=== PATIENT | male | born 1980 | race Caucasian/White ===

== ENCOUNTER 2024-08-31 09:49 | Emergency (ER) | payer OTHER, SELFPAY ==
--- NOTE | ~2024-08-31 | XR_ITS ---
EXAMINATION: XR chest 2V DATE: 08/31/2024 10:21 INDICATION: Cough TECHNIQUE: PA and lateral views of the chest were obtained. COMPARISON: None FINDINGS: Emphysema with increased lucency and architectural distortion in the upper lung zones. Moderate biapi terrell pleural-parenchymal scarring with associated linear discoid atelectasis on the left. 9 mm right l ower lobe nodule which given conspicuity is likely calcified sequela of old granulomatous disease. No other airspace opacities, pulmonary edema, pleural effusion or pneumothorax. Heart size is normal. V isualized bones and soft tissues are unremarkable. IMPRESSION: 1. Emphysema with biapical pleural-parenchymal scarring. No other acute cardiopulmonary disease. 2. 9 mm likely calcified nodule right lower lobe. Consider follow-up low-dose noncontrast chest CT to confirm calcification. Reviewed, dictated and finalized at location A. [facility] REP SPECIALIST IMPRESSION: 1. Emphysema with biapical pleural-parenchymal scarring. No other acute cardiop ulmonary disease. 2. 9 mm likely calcified nodule right lower lobe. Consider follow-up low-dose n oncontrast chest CT to confirm calcification.
--- OUTSIDE RECORDS SUMMARY | 2024-08-31 09:52 | XMS_ITS | Clinical Summary ---
Author Organization [facility] Address [address] [place] [address] Phone Care Team Providers Care Orthopedic Cast Specialist Name Role Phone Unavailable Primary Care Provider Unavailabl e Allergies No known active allergies Medications acetaminophen-co deine (TYLENOL #3) 300-30 mg tablet Take 1 Tablet by mouth every 4 hours as needed for Pain. 15 Tablet None 04/17/2015 Active Family History Medical History Relation Name Comments Healthy Father Healthy Mother Relation Name Status Comments Father Alive Mother Alive Social History Tobacco Use Types Packs/Day Years Used Date Smoking Tobacco: Unknown Sex and Gender Information Value Date Recorded Sex Assigned at Not on file Legal Sex Male 3:03 PM CDT Gender Identity Not on file Sexual Orientation Not on file Last Filed Vital Signs Vital Sign Reading Time Taken Comments Blood Pressure 136/83 04/09/2020 4:33 PM CDT Pulse 67 04/09/2020 4:33 PM CDT Temperature 36.6 C (97.9 F) 04/09/2020 4:33 PM CDT Respiratory Rate 20 04/09/2020 4:33 PM CDT Oxygen Saturation 100% 04/09/2020 4:33 PM CDT Inhaled Oxygen Concentration - - Weight 81.6 kg (180 lb) 04/09/2020 4:33 PM CDT Height 188 cm (6' 2 ) 04/09/2020 4:33 PM CDT Body Mass Index 23.11 04/09/2020 4:33 PM CDT Plan of Treatment Health Maintenance Due Date Last Done Comments DTAP/TDAP/TD VACCINES (1 - Tdap) 1997 HEPATITIS B VACCINES (1 of 3 - 19+ 3-dose series) 1997 COLORECTAL SCREENING 2023 Colorectal Cancer Screening 2023 FIT-DNA Q 3 years 2023 FIT/FOBT Q 1 year 2023 Flex Sig/CT Colonography Q 5 years 2023 INFLUENZA VACCINE (#1) 2024 HPV VACCINES Aged Out No longer eligi ble based on patient's age to complete this topic PNEUMOCOCCAL VACCINE 0-64 YEARS Aged Out No longer eligible based on patient's age to complete this topic Insurance
--- OUTSIDE RECORDS SUMMARY | 2024-08-31 09:52 | XMS_ITS | Clinical Summary ---
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
--- OUTSIDE RECORDS SUMMARY | 2024-08-31 09:52 | XMS_ITS | Encounter Summary ---
Author Organization [employer] [facility] Address 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
[2024-08-31 10:00] VITALS: BP 125/86; PULSE 74; RESP 18; TEMP 36.4; O2SAT 98
--- NOTE | 2024-08-31 10:11 | ED_ITS ---
HPI - General Adult General Chief complaint: Upper Respiratory Infection Stated complaint: chest rama Source: patient Mode of arrival: ambulatory Limitations: no limitations History of Present Illness HPI narrative: Pt presents for evaluation of respiratory symptoms. He developed chest congestion around July 10 of this year. Approximately 2 weeks ago he had symptoms that he thought were consistent with COVID or flu. He has had COVID in the past his symptoms seemed similar to that. He was experiencing fever, sore throat, cough and body aches. Most of his symptoms improved but his respiratory symptoms persist. He reports cough, SOB and chest tightness. No fever, chills, nausea, vomiting or diarrhea. No underlying history of asthma. His girlfriend recently had similar symptoms. He smokes 1/2 ppd. He tried taking mucinex and other OTC cough and cold medication for his symptoms. Related Data Allergies Allergy/AdvReac Type Severity Reaction Status Date / Time ceftriaxone (From Rocephin) Allergy Unknown Unknown Verified 08/31/24 10:03 Review of Systems Review of Systems: CONSTITUTIONAL: Denies fever, chills, or sweats. EYES: Denies visual changes, redness, or discharge. ENT: Denies rhinorrhea, congestion, sore throat, or otalgia. CARDIOVASCULAR: Denies chest pain, palpitations, or edema. RESPIRATORY: Reports cough, chest tightness and mild SOB GASTROINTESTINAL: Denies abdominal pain, nausea, vomiting, or diarrhea. GENITOURINARY: Denies dysuria or hematuria. SKIN: Denies rash or itching. MUSCULOSKELETAL: Denies back pain, joint pain, or myalgia. NEUROLOGIC: Denies headache, numbness, dizziness, or weakness. PSYCHIATRIC: Denies anxiety or depression. [facility] Past Medical History Medical History No pertinent past medical history Surgical History Surgical History H/O umbilical hernia repair Family History Family History Mother Family history non-contributory Social History Social History Smoking packs per day: 0.5 Smoking cigarettes per day: 10.0 Smoking status: Current every day smoker Gender identity (if verbalized by the patient): Male Sexual Orientation (if Verbalized by the Patient): Straight or Heterosexual Spiritual care concerns: No Exam Narrative: GENERAL: Well-appearing, well-nourished, and in no acute distress. HEAD: Normocephalic, atraumatic. EYES: PERRLA and EOMI. ENT: Nares clear, no rhinorrhea or epistaxis. Mucous membranes moist. Oropharynx without tonsillar hypertrophy exudate or other lesions. Bilateral TMs pearly medel nonbulging NECK: Supple. No adenopathy or masses. No carotid bruits or JVD CHEST: Cough present on exam. Clear to auscultation. No respiratory distress. No wheezes rales or rhonchi HEART: Regular rate and rhythm. No murmur heard. Normal peripheral pulses. ABDOMEN: Soft, nontender, nondistended, normal active bowel sounds. EXTREMITIES: Normal range of motion. No edema. SKIN: Warm, dry, no rash. NEURO: No focal deficits. Alert and oriented x3. PSYCH: Normal mood and affect. Course Course Emergency Course: This is a 44-year-old male who presented for evaluation of respiratory symptoms. His symptoms have been recurrent so concern was for community-acquired pneumonia. Chest x-ray consistent with that but did show emphysema pulmonary nodule. Patient will need outpatient CT chest. He is agreeable with this plan. He has done well with steroids in the past. Will discharge with Tessalon, prednisone, albuterol. Patient follow-up with primary care and go to the emergency department for difficulty breathing. Pt in agreement with plan of care. Level of Care: Express Care Visit Vital Signs Vital signs: Vital Signs Temperature 36.4 C 08/31/24 10:00 Pulse Rate 74 08/31/24 10:00 Respiratory Rate 18 08/31/24 10:00 Blood Pressure 125/86 08/31/24 10:00 Pulse Oximetry 98 08/31/24 10:00 Oxygen Delivery Room Air 08/31/24 10:00 Temperature 36.4 C 08/31/24 10:00 Pulse Rate 74 08/31/24 10:00 Respiratory Rate 18 08/31/24 10:00 Blood Pressure 125/86 08/31/24 10:00 Pulse Oximetry 98 08/31/24 10:00 Oxygen Delivery Room Air 08/31/24 10:00 Medical Decision Making Vital Signs Vital Signs: Vital Signs Temperature 36.4 C 08/31/24 10:00 Pulse Rate 74 08/31/24 10:00 Respiratory Rate 18 08/31/24 10:00 Blood Pressure 125/86 08/31/24 10:00 Pulse Oximetry 98 08/31/24 10:00 Oxygen Delivery Room Air 08/31/24 10:00 Temperature 36.4 C 08/31/24 10:00 Pulse Rate 74 08/31/24 10:00 Respiratory Rate 18 08/31/24 10:00 Blood Pressure 125/86 08/31/24 10:00 Pulse Oximetry 98 08/31/24 10:00 Oxygen Delivery Room Air 08/31/24 10:00 Lab Data Labs: EXAMINATION: XR chest 2V DATE: 08/31/2024 10:21 INDICATION: Cough TECHNIQUE: PA and lateral views of the chest were obtained. COMPARISON: None FINDINGS: Emphysema with increased lucency and architectural distortion in the upper lung zones. Moderate biapical pleural-parenchymal scarring with associated linear discoid atelectasis on the left. 9 mm right lower lobe nodule which given conspicuity is likely calcified sequela of old granulomatous disease. No other airspace opacities, pulmonary edema, pleural effusion or pneumothorax. Heart size is normal. Visualized bones and soft tissues are unremarkable. IMPRESSION: 1. Emphysema with biapical pleural-parenchymal scarring. No other acute cardiopulmonary disease. 2. 9 mm likely calcified nodule right lower lobe. Consider follow-up low-dose noncontrast chest CT to confirm calcification. Discharge Plan Discharge Clinical Impression: Upper respiratory infection, viral, Pulmonary nodule, Emphysema lung Patient Disposition: Home, Self-Care Condition: Stable Instructions: Antibiotic Form, How to Stop Smoking (ED), Upper Respiratory Infection (ED), Emphysema (DC), Pulmonary Nodules (ED) Additional Instructions: PLEASE FOLLOW UP WITH PRIMARY CARE PROVIDER FOR CT SCAN OF YOUR CHEST REGARDING PULMONARY NODULE AND EMPHYSEMA Patient Language: Indonesian Prescriptions: New prednisone 50 mg tablet 50 mg PO DAILY Qty: 5 0RF benzonatate 200 mg capsule 200 mg PO TID PRN (Reason: cough) Qty: 30 0RF albuterol sulfate [Ventolin HFA] 90 mcg/actuation HFA aerosol inhaler 2 puff inhalation QID PRN (Reason: shortness of breath or wheezing) Qty: 8.5 0RF Follow-up/Referrals: Jc Nathan MD [Physician] - Time of Disposition: 10:54
== END 2024-08-31 11:04 | disposition home or self-care (01) ==
PROVIDERS: Emergency Provider Nurse Practitioner
DX: J06.9 Acute upper respiratory infection, unspecified (principal); B97.89 Other viral agents as the cause of diseases classified elsewhere; R91.8 Other nonspecific abnormal finding of lung field; J43.9 Emphysema, unspecified; F17.210 Nicotine dependence, cigarettes, uncomplicated
CPT/HCPCS: 71046; 99203; G0463